=== PATIENT | male | born 1980 | race Hispanic/Latino ===

== ENCOUNTER 2019-09-23 12:24 | Emergency (ER) | payer OTHER ==
[~2019-09-23] VITALS: Ht 172.7 cm; Wt 128.4 kg
[2019-09-23] MEDS ORDERED: HYDROCODONE/APAP 10MG-325MG TAB PO ONE (13:15)
[2019-09-23] MEDS ORDERED: ONDANSETRON HCL 4 MG ORAL DISINTEGRATING TAB PO ONE (13:45)
--- NOTE | 2019-09-23 14:28 | Emergency Department Note ---
History of Present Illnes History of Present Illness Chief Complaint: Extremity Trauma/Pain History of Present Illness This is a 39 year old male NO INJURY NO TRAUMA. +DP. LEFT FOOT PAIN AFTER WAKING UP THIS AM. NO HX GOUT. PAIN ON LEFT LATERAL SIDE. WALKING ON CRUTCHES. 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 Any updates have been documented here. Past Medical History Recent Fever: No Clinical Suspicion of Infectio: No New/Unexplained Change in Ment: No Past Medical History: Other Mental Illness Other Medical History: ADHD PTSD Past Surgical History: Back Surgery Other Surgery: BILATERAL FEET (PLANTER FASCITIS REPAIR)2008 Social History Smoking Cessation: Never Smoker Counseling Performed: No Alcohol Use: None Any Illegal Drug Use: No TB Exposure/Symptoms: No Physically hurt or threatened: No Other Any Pre-Existing Lines (PICC,: No Is patient up to date on immun: No Last Flu: utd Last Pneumovax: utd Review of Systems Review of Systems Constitutional: no symptoms EENTM: no symptoms Cardiovascular: no symptoms Respiratory: no symptoms Gastrointestinal: no symptoms Genitourinary: no symptoms Musculoskeletal: joint pain Neurological: no symptoms Psychological: no symptoms Endocrine: no symptoms Hematological/Lymphatic: no symptoms Review of other systems All other systems reviewed and negative. Physical Exam Related Data Allergies: Coded Allergies: iodine (Verified Allergy, Unknown, 09/23/19) Triage Vital Signs Vital Signs Date Time Temp Pulse Resp B/P (MAP) Pulse Ox O2 Delivery O2 Flow Rate FiO2 09/23/19 12:28 98.8 75 18 131/104 98 Physical Exam CONSTITUTIONAL Constitutional: well-developed, well-nourished HENT HENT: normocephalic, atraumatic, oropharynx clear/moist, nose normal HENT L/R: left ext ear normal, right ext ear normal EYES Eyes: PERRL, conjunctivae normal NECK Neck: ROM normal PULMONARY Pulmonary: effort normal, breath sounds normal CARDIOVASCULAR Cardiovascular: regular rhythm, heart sounds normal, capillary refill normal, normal rate GASTROINTESTINAL Abdominal: soft, nontender, bowel sounds normal GENITOURINARY Genitourinary: exam deferred SKIN Skin: warm, dry MUSCULOSKELETAL Musculoskeletal: ROM normal, other (TENDERNESS LEFT LATERAL FOOT DISTAL 5TH METATARSAL AREA, NO SWELLING) NEUROLOGICAL Neurological: alert, oriented x 3, no gross motor or sensory deficits PSYCHOLOGICAL Psychological: mood/affect normal, judgement normal Results Imaging Imaging results reviewed: Yes Critical Care Time Subsequent provider I assumed direction of critical care for this patient from another provider of my specialty. Assessment & Plan Assessment & Plan Final Impression: (1) Foot pain, left Assessment & Plan POST-OP SHOE, CRUTCHES NEEDED FOLLOW-UP WITH PODIATRY, DR FARAH IBUPROFEN DIRECTED TYL #3 DIRECTED PRN Depart Disposition: HOME, SELF-CARE Last Vital Signs Date Time Temp Pulse Resp B/P (MAP) Pulse Ox O2 Delivery O2 Flow Rate FiO2 09/23/19 12:28 98.8 75 18 131/104 98 Medications in the ED Acetaminophen/ Hydrocodone Bitart 1 ea ONCE ONCE PO Last administered on 09/23/19at 13:34; Admin Dose 1 EA; Start 09/23/19 at 13:15; Stop 09/23/19 at 13:16; Status DC Ondansetron HCl 4 mg ONCE ONCE PO Last administered on 09/23/19at 13:39; Admin Dose 4 MG; Start 09/23/19 at 13:45; Stop 09/23/19 at 13:46; Status DC ADDIS VEGA MD September 23, 2019 14:28
--- NOTE | 2019-09-23 14:56 | NUR ---
client given ortho shoe.
--- NOTE | 2019-09-23 15:25 | Diagnostic Imaging Report ---
X-ray right foot multiple views History: Pain and swelling Comparison: None Findings: Please see impression. Impression: Multiple views of the right foot show no acute fracture, subluxation, soft tissue air or radiopaque foreign body. There is mild soft tissue swelling in the midfoot. Signed by: Stevie Ruelas MD on 09/23/2019 3:22 PM
== END 2019-09-23 15:11 | disposition home or self-care (01) ==
LOC: ER 12:28
DX: M79.672 Pain in left foot (principal); F90.9 Attention-deficit hyperactivity disorder, unspecified type
CPT/HCPCS: 73630; 99282; Q0162